=== PATIENT | female | born 1990 | race Two or more races ===

== ENCOUNTER 2017-06-19 08:15 | Emergency (ER) | payer MEDICAID ==
[2017-06-19] MEDS ORDERED: TDAP ADULT 0.5 ML INJ (BOOSTRIX) IM ONE (08:47)
[2017-06-19] MEDS ORDERED: SILVER NITRATE APPLICATOR 1 APPL TP ONE (08:50)
--- NOTE | 2017-06-19 08:57 | EDPHY ---
H & P Stated Complaint: Left ring finger laceration - with glass last night. Time Seen by Provider: 06/19/17 08:46 HPI/ROS: HPI: This is a 27-year-old female presents with Chief Complaint: cut finger on piece of glass last night, still bleeding when compression is not applied. Location: Left ring finger Quality: Cut Duration: Last night around 10:00 p.m. Signs and Symptoms: + bleeding, no radiation, no numbness, no weakness, no tingling, no decreased range of motion, no swelling, + pain Timing: Sudden Severity: [id number] Context: Patient reports that she was cleaning a glass last night and accidentally cut her left ring finger. She washed out real well with soap and water and applied a Band-Aid but continues to bleed. She notes that the pain is [id number] in nature, constant, and nonradiating. She is right-hand dominant. She is unsure of her last tetanus shot. She is wearing a ring on that finger that her and her daughter play with it is not value both to her and she gives consent for us to use the ring cutter to remove it. Modifying Factors: Direct pressure, transient relief Comment: ROS: see HPI Constitutional: No fever, no chills, no weight loss Eyes: No blurred vision Respiratory: No shortness of breath, no cough Cardiovascular: No chest pain Gastrointestinal: No nausea, no vomiting no diarrhea Genitourinary: No dysuria Extremities: No myalgias Neurologic: No weakness, no numbness Skin: No rashes Hematologic: No bruising, no bleeding MEDICAL/SURGICAL/SOCIAL HISTORY: Medical history: Generally healthy. Does not take any regular medications. Surgical history: Denies Social history: CONSTITUTIONAL: Slightly anxious adult female, wake and alert, no obvious distress HEENT: Atraumatic and normocephalic, PERRL, EOMI. Tympanic membranes clear. Oropharynx clear, no exudate and moist pink mucosa. Airway patent. No lymphadenopathy. No meningismus. Cardiovascular: Normal S1/S2, regular rate, regular rhythm, without murmur rub or gallop. PULMONARY/CHEST: Symmetrical and nontender. Clear to auscultation bilaterally. Good air movement. No accessory muscle usage. ABDOMEN: Soft, nondistended, nontender, no rebound, no guarding, no peritoneal signs, no masses or organomegaly. No CVAT. EXTREMITIES: 2/2 radial pulses, left ring finger; palmar aspect 3 cm avulsion irregular, complex; small area noted with vessel that continues to bleed. DIP/ PIP flexion, extension, light touch sensation intact. strength 5/5, no deformities, no clubbing, no cyanosis or edema. NEUROLOGICAL: no focal neuro deficits. GCS 15. SKIN: Warm and dry, no erythema. no rash. Good capillary refill. Source: Patient Exam Limitations: No limitations - Personal History LMP (Females 10-55): 15-21 Days Ago Current Tetanus Diphtheria and Acellular Pertussis (TDAP): Unsure - Medical/Surgical History Hx Asthma: No Hx Chronic Respiratory Disease: No Hx Diabetes: No Hx Cardiac Disease: No Hx Renal Disease: No Hx Cirrhosis: No Hx Alcoholism: No Hx HIV/AIDS: No Hx Splenectomy or Spleen Trauma: No Other PMH: Denies - Social History Smoking Status: Never smoked Constitutional: Initial Vital Signs Temperature (C) 36.6 C 06/19/17 08:16 Heart Rate 99 06/19/17 08:16 Respiratory Rate 18 06/19/17 08:16 Blood Pressure 117/78 06/19/17 08:16 O2 Sat (%) 98 06/19/17 08:16 O2 Delivery Mode Room Air Allergies/Adverse Reactions: No Known Allergies Allergy (Unverified 05/05/09 03:15) Home Medications: Medication Instructions Recorded Ibuprofen [Motrin (*)] 600 mg PO Q6 PRN #0 tab 04/15/16 Medical Decision Making Procedures: Procedure: Laceration repair. Verbal consent was obtained from the patient. The 3 cm complex irregular laceration on the left ring finger was anesthetized in the usual fashion. The wound was irrigated, draped and explored to its base with a gloved finger. There were no deep structures involved. No tendon injury was identified. The wound was repaired with #3, 6-0 Prolene. Surgicel, Xeroform, clean sterile dressing and finger splint applied. Good hemostasis was achieved and patient tolerated procedure well. The procedure was performed by myself. Procedure: Ring Removal Procedure: Splint placement. A finger splint was applied by the Emergency Room field evidence technician. After application of the splint I returned and re-examined the patient. The splint was adequately immobilizing the joint and distal to the splint the patient's circulation and sensation was intact. ED Course/Re-evaluation: Wound and laceration repair Small superficial vessel continues to bleed; 1 silver nitrate as well as surgery foam used to obtain hemostasis. Patient gave verbal consent for me to cut her silver ring off of her ring finger. She reports that it is just apply ring that her and her daughter use. Tetanus booster given Skin avulsion noted only 3 stitches able to be applied. Will have to heal by secondary intention. [facility] 48[facility]72 hours for repeat wound check. No signs of neurovascular compromise/tenting of skin/compartment syndrome/ extremities and joints examined above and below area of concern and are neurovascularly intact/tendon injury/nerve injury. Differential Diagnosis: Differential diagnosis includes but is not limited to laceration, nerve injury, tendon injury, phalanx fracture, contusion, sprain. - Data Points Medications Given: Discontinued Medications Diphtheria/Tetanus/Acell Pertussis (Boostrix) 0.5 ml IM .ONCE ONE Stop: 06/19/17 08:48 Last Admin: 06/19/17 08:52 Dose: 0.5 ml Departure - Departure Disposition: Home, Routine, Self-Care Clinical Impression: Laceration of left ring finger Qualifiers: Encounter type: initial encounter Damage to nail status: without damage Foreign body presence: without foreign body Qualified Code(s): S61.215A - Laceration without foreign body of left ring finger without damage to nail, initial encounter Avulsion of skin of finger Qualifiers: Encounter type: initial encounter Qualified Code(s): S61.209A - Unspecified open wound of unspecified finger without damage to nail, initial encounter Condition: Good Instructions: Finger Laceration (ED) Additional Instructions: Keep the dressing and splint in place for 48-72 hours. After 48 hours, you may remove the dressing; wash the site daily with mild soap and water; then pat dry. Take ibuprofen 600 mg every 6-8 hours with food as needed for pain and inflammation. Apply ice for 30 minutes at a time; 2-3 times per day for the next 1-2 days. Please return to the emergency room for sutures to be removed in 7-10 days. Follow up with PCP and/or this emergency room in 48-72 hours for wound check. Referrals: [facility] [Other] - As per Instructions
[2017-06-19 10:58] VITALS: BP 104/62; PULSE 59; RESP 16; TEMP 98.4; O2SAT 96
== END 2017-06-19 11:00 | disposition home or self-care (01) ==
PROC: 0HQGXZZ Repair Left Hand Skin, External Approach (ICD-10-PCS; principal; 2017-06-19)
DX: S61.215A Laceration without foreign body of left ring finger without damage to nail, initial encounter (principal); Z23 Encounter for immunization; W25.XXXA Contact with sharp glass, initial encounter
CPT/HCPCS: L3925